=== PATIENT | female | born 1945 | race Caucasian/White ===

== ENCOUNTER 2019-05-01 21:25 | Emergency (ER) | payer MEDICARE ==
[2019-05-01 21:34] VITALS: RESP 18; TEMP 97.8
--- NOTE | 2019-05-01 21:57 | CT ---
EXAMINATION TYPE: CT brain wo con DATE OF EXAM: 05/01/2019 COMPARISON: None HISTORY: Headache and hypertension. CT DLP: 1072.4 mGycm Automated exposure control for dose reduction was used. There is some cerebral cortical atrophy. There is moderate patchy hypodensity in the periventricular white matter. There is no mass effect nor midline shift. There is no sign of intracranial hemorrhage. The calvarium is intact. IMPRESSION: Cerebral atrophy and moderate diffuse chronic small vessel ischemia. No acute intracranial abnormalit y.
[2019-05-01 22:26] VITALS: BP 165/98; PULSE 90
--- NOTE | 2019-05-01 22:42 | ED ---
General Adult HPI - General Chief complaint: Headache Stated complaint: headache Time Seen by Provider: 05/01/19 21:30 Source: patient, EMS, RN notes reviewed, old records reviewed Mode of arrival: EMS Limitations: no limitations - History of Present Illness Initial comments: 73-year-old female presented for evaluation of headache and elevated blood pre ssure. Patient admits to eating a large amount of sodium containing food yesterday and she believes this is the cause of her elevated blood pressure today. She has been pacing and is currently preparing her house for [employer]. She believes that she may have overdone it yesterday. She developed a headache around 2 PM today and noted that her blood pressure was elevated. She took a Motrin and extra dose of her oral antihypertensive medication. She was hypertensive for EMS during transport. Upon arrival to the emergency department her symptoms are improving. She was seen at an outside hospital within the past 48 hours, for which she states was left arm pain and states she was discharged home after a workup related to her heart. - Related Data Allergies Allergy/AdvReac Type Severity Reaction Status Date / Time Penicillins Allergy Rash/Hives Verified 05/01/19 21:42 Sulfa (Sulfonamide Allergy Rash/Hives Verified 05/01/19 21:42 Antibiotics) Review of Systems ROS Statement: Those systems with pertinent positive or pertinent negative responses have been documented in the HPI. ROS Other: All systems not noted in ROS Statement are negative. Past Medical History Past Medical History: Asthma, Diabetes Mellitus, Hypertension History of Any Multi-Drug Resistant Organisms: None Reported Past Surgical History: Orthopedic Surgery Additional Past Surgical History / Comment(s): R knee. Past Psychological History: Anxiety Smoking Status: Never smoker Past Alcohol Use History: None Reported Past Drug Use History: None Reported General Exam Limitations: no limitations General appearance: alert, in no apparent distress, anxious Head exam: Present: atraumatic, normocephalic Eye exam: Present: normal appearance, PERRL ENT exam: Present: normal exam Neck exam: Present: normal inspection. Absent: tenderness, meningismus Respiratory exam: Present: normal lung sounds bilaterally. Absent: respiratory distress, wheezes Cardiovascular Exam: Present: regular rate, normal rhythm GI/Abdominal exam: Present: soft. Absent: distended, tenderness, guarding Extremities exam: Present: normal inspection, normal capillary refill Neurological exam: Present: alert, oriented X3, CN II-XII intact, other (No ataxia, normal [id number]). Absent: motor sensory deficit Psychiatric exam: Present: normal affect, normal mood Skin exam: Present: warm, dry, intact. Absent: cyanosis, diaphoretic Course Vital Signs 05/01/19 05/01/19 21:30 22:25 Temperature 97.8 F 97.8 F Pulse Rate 96 90 Respiratory 18 18 Rate Blood Pressure 159/78 165/98 O2 Sat by Pulse 98 98 Oximetry Medical Decision Making - Medical Decision Making 73-year-old female presenting with headache. Patient does not typically get headaches. She does admit to not eating much and have had a stressful and overworked several days. Headache is improving at the time my evaluation with Motrin that she took prior to arrival. I did perform some head CT which is negative for intracranial hemorrhage or mass effect, showing chronic changes. On reevaluation she is completely headache free without additional treatment beyond what she took at home prior to arrival. Her neurologic exam is unremarkable. She has elevated blood pressure although this is closer to the normal range. She is able to eat and drink in the emergency department, and she is eager for discharge. She will be taking a cab home. Disposition Clinical Impression: Headache, Hypertension Disposition: HOME SELF-CARE Condition: Fair Instructions (If sedation given, give patient instructions): Acute Headache (ED), Low-Sodium Diet (ED), Hypertension (ED) Additional Instructions: Please follow up with her primary care physician. Please return with worsening or changing symptoms. Is patient prescribed a controlled substance at d/c from ED?: No Referrals: None,Stated [Primary Care Provider] - 1-2 days Time of Disposition: 22:41
== END 2019-05-01 23:05 | disposition home or self-care (01) ==
LOC: EC 21:25
DX: I10 Essential (primary) hypertension (principal); R51 Headache; E11.9 Type 2 diabetes mellitus without complications; J45.909 Unspecified asthma, uncomplicated; F41.9 Anxiety disorder, unspecified; Z88.0 Allergy status to penicillin; Z88.2 Allergy status to sulfonamides
CPT/HCPCS: 70450; 99284